=== PATIENT | male | born 1955 | race African-American/Black ===

== ENCOUNTER → 2016-11-14 | Outpatient (CLI) | payer BC | LOC: RAD 08:59 → EDSTATUS 15:04 | PROVIDERS: ATTEND Podiatrist Foot & Ankle Surgery | DX: D48.1 Neoplasm of uncertain behavior of connective and other soft tissue (principal) | CPT/HCPCS: 82565; 73720; A9576 ==

== ENCOUNTER → 2016-11-16 | Outpatient (CLI) | payer BC | LOC: RAD 08:09 | PROVIDERS: ATTEND Podiatrist Foot & Ankle Surgery | DX: D48.1 Neoplasm of uncertain behavior of connective and other soft tissue (principal) | CPT/HCPCS: 73720; A9576 ==